=== PATIENT | male | born 1950 | race Caucasian/White ===

== ENCOUNTER → 2017-12-12 | Outpatient (CLI) | payer MEDICARE ==
[2017-12-12 15:38] LABS: ADD MAN DIFF? NO
[2017-12-12 15:41] LABS: BASO # 0.1 x10^3/uL (0.0-0.2); BASO % 1 % (0-3); EOS # 0.2 x10^3/uL (0.0-0.7); EOS % 3 % (0-3); HEMATOCRIT 41.8 % (39.0-53.0); HEMOGLOBIN 14.5 g/dL (13.0-17.5); LYMPH # 1.7 x10^3/uL (1.0-4.8); LYMPH % 21 % (24-48); MEAN CORPUSCULAR HEMOGLOBIN 29 pg (25-35); MEAN CORPUSCULAR HGB CONC 35 g/dL (31-37); MEAN CORPUSCULAR VOLUME 84 fL (79-100); MONO # 0.5 x10^3/uL (0.0-1.1); MONO % 6 % (0-9); NEUT # 5.6 x10^3uL (1.8-7.7); NEUT % 69 % (31-73); PLATELET COUNT 284 x10^3/uL (140-400); RED BLOOD COUNT 5.01 x10^6/uL (4.30-5.70); RED CELL DISTRIBUTION WIDTH 14.1 % (11.5-14.5); WHITE BLOOD COUNT 8.1 x10^3/uL (4.0-11.0)
[2017-12-12 16:00] LABS: PARTIAL THROMBOPLASTIN TIME 27 SEC (24-38); PROTHROMBIN TIME PATIENT 12.7 SEC (11.7-14.0)
[2017-12-12 16:17] LABS: ALBUMIN 3.5 g/dL (3.4-5.0); ALBUMIN/GLOBULIN RATIO 0.9 (1.0-1.7); ALK PHOS 69 U/L (46-116); ALT (SGPT) 35 U/L (16-63); ANION GAP 6 (6-14); AST (SGOT) 27 U/L (15-37); BLOOD UREA NITROGEN 16 mg/dL (8-26); BUN/CREATININE RATIO 18 (6-20); CALCIUM 9.1 mg/dL (8.5-10.1); CARBON DIOXIDE 30 mmol/L (21-32); CHLORIDE 102 mmol/L (98-107); CREATININE 0.9 mg/dL (0.7-1.3); GFR 83.9; GLUCOSE 162 mg/dL (70-99); POTASSIUM 3.4 mmol/L (3.5-5.1); SODIUM 138 mmol/L (136-145); TOTAL BILIRUBIN 0.4 mg/dL (0.2-1.0); TOTAL PROTEIN 7.5 g/dL (6.4-8.2)
[2017-12-13 03:17] LABS: MRSA BY PCR Negative (Negative)
== END | disposition home or self-care (01) ==
LOC: SURGPAT 14:29
DX: Z01.818 Encounter for other preprocedural examination (principal); M48.02 Spinal stenosis, cervical region; M54.12 Radiculopathy, cervical region
CPT/HCPCS: 36415; 80053; 85025; 85610; 85730; 87641; 93005

== ENCOUNTER 2017-12-18 10:06 | Inpatient (IN) | payer MEDICARE ==
[~2017-12-18 10:06] MED LIST: LIDOCAINE 1% PF 2 ML VIAL. ID; ONDANSETRON PF 4 MG/2 ML VIAL. IV; PROCHLORPERAZINE 10 MG/2 ML VIAL. IV; fentaNYL PF VIAL 100 MCG/2 ML VIAL IV
[2017-12-18] MEDS: IV RINGERS,LACTATED 1000ML 1,000 ML IV (10:55)
[2017-12-18] MEDS ORDERED: ceFAZolin 2GM PREMIX 2 GM/50 ML BAG IV (12:00)
[2017-12-18] MEDS ORDERED: ONDANSETRON PF 4 MG/2 ML VIAL. ×2 (12:15→12:24)
[2017-12-18] MEDS ORDERED: PROPOFOL 50 ML IV ×3 (12:15→14:31)
[2017-12-18] MEDS ORDERED: PHENYLEPHRINE 10 MG/ML VIAL. ×3 (12:15→12:24)
[2017-12-18] MEDS ORDERED: DEXAMETHASONE SOD PHOS 20 MG/5 ML VIAL. ×2 (12:15→12:24)
[2017-12-18] MEDS ORDERED: MINERAL OIL/PETROLATUM,WHITE OPHTH OINT 3.5GM TUBE. (12:15)
[2017-12-18] MEDS ORDERED: LIDOCAINE 2% PF Vial for OR 5 ML VIAL. (12:15)
[2017-12-18] MEDS ORDERED: PROPOFOL 0 ML IV (12:15)
[2017-12-18] MEDS ORDERED: ROCURONIUM 50 MG/5 ML VIAL. ×2 (12:15→12:23)
[2017-12-18] MEDS ORDERED: REMIFENTANIL 2 MG VIAL. IV ×2 (12:15→12:23)
[2017-12-18] MEDS ORDERED: DESFLURANE > 120 MINUTES IH ×2 (12:23→14:32)
[2017-12-18] MEDS ORDERED: PROPOFOL 20 ML IV ×2 (12:24→14:31)
[2017-12-18] MEDS ORDERED: GLYCOPYRROLATE 1 MG/5 ML VIAL. (13:50)
[2017-12-18] MEDS: GELATIN SPONGE SIZE 100. (14:20)
[2017-12-18] MEDS: BACITRACIN 50,000 UNIT in IV NORMAL SALINE 1000ML BAG 1,000 ML IRR (14:20)
[2017-12-18] MEDS: THROMBIN TOPICAL 20,000 UNIT SPRAY.SYRN KIT TP (14:20)
[2017-12-18] MEDS: KETOROLAC 60 MG/2 ML INJ FOR OR. (14:20)
[2017-12-18] MEDS: BUPIVAC MPF-EPI 0.5%-1:200000 30 ML VIAL. INJ (14:20)
[2017-12-18] MEDS ORDERED: fentaNYL PF VIAL 100 MCG/2 ML VIAL IV (15:45)
[2017-12-18] MEDS ORDERED: CALCIUM CARBONATE 500 MG TAB.CHEW PO (15:45)
[2017-12-18] MEDS ORDERED: MAGNESIUM HYDROXIDE 2,400 MG/30 ML ORAL.SUSP. PO (15:45)
[2017-12-18] MEDS ORDERED: ONDANSETRON PF 4 MG/2 ML VIAL. IV (15:45)
[2017-12-18] MEDS ORDERED: ACETAMINOPHEN 325 MG TABLET. PO (15:45)
[2017-12-18] MEDS ORDERED: 0.9 % SODIUM CHLORIDE 10 ML DISP.SYRIN. IV (15:45)
[2017-12-18] MEDS ORDERED: diphenhydrAMINE 50 MG/ML VIAL IV (15:45)
[2017-12-18] MEDS ORDERED: diphenhydrAMINE HCL 25 MG CAPSULE PO (15:45)
[2017-12-18] MEDS ORDERED: MAG HYDROX/ALUMINUM HYD/SIMETH 30 ML ORAL.SUSP PO (15:45)
[2017-12-18] MEDS ORDERED: NEOSTIGMINE METHYLSULFATE 5 MG/5 ML SYRINGE. (17:09)
[2017-12-18] MEDS ORDERED: fentaNYL PF VIAL 100 MCG/2 ML VIAL (17:16)
[2017-12-18] MEDS ORDERED: MORPHINE SULFATE 4 MG/ML DISP.SYRIN. (17:16)
[2017-12-18] MEDS: fentaNYL PF VIAL 100 MCG/2 ML VIAL IV ×3 (17:20→23:45)
[2017-12-18] MEDS: MORPHINE SULFATE 4 MG/ML DISP.SYRIN. IV (17:44)
[2017-12-18] MEDS ORDERED: HYDROmorphone 2 MG/ML VIAL (17:48)
[2017-12-18] MEDS: HYDROmorphone 2 MG/ML VIAL IV (17:57)
[2017-12-18] MEDS ORDERED: PNEUMOCOCCAL VAX SCREEN BY RX. MC (19:00)
[2017-12-18] MEDS: POTASSIUM CL 20MEQ D5-0.45NACL 1,000 ML IV (19:50)
[2017-12-18] MEDS: DOCUSATE SODIUM 100 MG CAPSULE. PO (20:42)
[2017-12-18] MEDS: ATORVASTATIN CALCIUM 10 MG TABLET. PO (20:42)
[2017-12-18] MEDS: METHOCARBAMOL 750 MG TABLET PO (20:43)
[2017-12-18] MEDS: ceFAZolin SODIUM IV Push 1 GM VIAL. IVP (21:36)
[2017-12-18] MEDS ORDERED: ceFAZolin SODIUM 1 GM in IV DEXTROSE 5% 50 ML IV (22:00)
[2017-12-18] MEDS: HYDROcodone/APAP 7.5/325MG 1 TAB TABLET PO (22:46)
[2017-12-19] MEDS: fentaNYL PF VIAL 100 MCG/2 ML VIAL IV (04:31)
[2017-12-19] MEDS: ceFAZolin SODIUM IV Push 1 GM VIAL. IVP ×2 (05:37→12:12)
[2017-12-19] MEDS: DOCUSATE SODIUM 100 MG CAPSULE. PO (08:03)
[2017-12-19] MEDS: MULTIVITAMIN with MINERAL TABLET. PO (08:03)
[2017-12-19] MEDS: METHOCARBAMOL 750 MG TABLET PO (08:03)
[2017-12-19] MEDS: hydroCHLOROthiazide 25 MG TABLET PO (08:05)
[2017-12-19] MEDS: LISINOPRIL 20 MG TABLET PO (08:06)
[2017-12-19] MEDS: HYDROcodone/APAP 7.5/325MG 1 TAB TABLET PO (08:07)
[2017-12-19] MEDS: DIGOXIN 125 MCG TABLET. PO (08:14)
[2017-12-19] MEDS ORDERED: CALCIUM MAG ZINC (09:00)
[2017-12-19] MEDS: PNEUMOC CONJ VACC 23-VALENT 0.5 ML VIAL. VAX IM (11:41)
== END 2017-12-19 12:50 | disposition home or self-care (01) | DRG 473 ==
LOC: OPSVCIP 10:06 → 4 SOUTHEST 18:18
PROC: 0RG1071 Fusion of Cervical Vertebral Joint with Autologous Tissue Substitute, Posterior Approach, Posterior Column, Open Approach (ICD-10-PCS; principal; 2017-12-18 13:00)
PROC: 4A11X4G Monitoring of Peripheral Nervous Electrical Activity, Intraoperative, External Approach (ICD-10-PCS; 2017-12-18 13:00)
DX: M48.02 Spinal stenosis, cervical region (principal); M54.12 Radiculopathy, cervical region
CPT/HCPCS: 36415; 76000; 86850; 86900; 86901; 90732; 97162-GP; 97530-GP; A7015; C1713; G8978-CI-GP; G8979-CI-GP; G8980-CI-GP; J0690; J1100; J1170; J1885; J2270; J2405; J2704; J2710; J3010; J3490; J7030; J7120

== ENCOUNTER → 2020-07-01 | Outpatient (CLI) | payer MEDICARE ==
[2017-12-19 11:36] VITALS: BP 139/74
[~2020-07-01] MED LIST changes: +ATOR10TA60 PO; +CALCIUM MAG ZINC; +DIGO250T3 PO; +DOCU-109 PO; +HYDR-2765 PO; +HYDR12.575 PO; -LIDOCAINE 1% PF 2 ML VIAL. ID; +LISI-130 PO; +METH750T2 PO; +MULT-659 PO; -ONDANSETRON PF 4 MG/2 ML VIAL. IV; -PROCHLORPERAZINE 10 MG/2 ML VIAL. IV; +ZOLPIDEM 5 MG TABLET. PO ONE; -fentaNYL PF VIAL 100 MCG/2 ML VIAL IV; +nugenix PO
== END ==
LOC: SLPLAB 19:15
PROVIDERS: ATTEND Internal Medicine Pulmonary Disease
DX: G47.33 Obstructive sleep apnea (adult) (pediatric) (principal)
CPT/HCPCS: 95810